=== PATIENT | male | born 1985 | race Caucasian/White ===

== ENCOUNTER 2019-03-26 15:29 | Emergency (ER) | payer SELFPAY, OTHER | END 2019-03-26 16:36 | disposition home or self-care (01) | LOC: FER 15:29 ==

== ENCOUNTER 2020-07-06 20:54 | Emergency (ER) | payer OTHER ==
[2020-07-06 21:05] VITALS: BP 130/89; TEMP 98.6; BMI 23.0
[2020-07-06] MEDS ORDERED: SODIUM CHLORIDE 1,000 ML IV ONE (21:34)
[2020-07-06 22:12] LABS: BASO % 0.7 % (0-2.0); EOS % 0.7 % (0-4.5); HEMATOCRIT 45.9 % (35.4-49); HEMOGLOBIN 15.4 GM/dl (11.7-16.9); LYMPH % 10.9 % (8-40); MCH 30.9 pg (25.7-33.7); MCHC 33.5 g/dl (32.0-35.9); MEAN CELL VOLUME 92.3 fl (80-96); MEAN PLT VOLUME 10.3 fl (7.5-11.1); MONO % 8.2 % (3.8-10.2); NEUT % 79.5 % (42.8-82.8); PLATELET COUNT 278 K/MM3 (134-434); RBC 4.97 M/mm3 (4.00-5.60); RDW 12.1 % (11.9-15.9); WHITE BLOOD COUNT 13.8 K/mm3 (4.0-10.8)
[2020-07-06 22:21] LABS: ALBUMIN 4.2 g/dl (3.4-5.0); BILIRUBIN,TOTAL 0.4 mg/dl (0.2-1); CALCIUM 9.6 mg/dl (8.5-10); POTASSIUM 4.1 mmol/L (3.5-5.1); TOT PROT 7.3 g/dl (6.4-8.2)
[2020-07-06 22:44] VITALS: PULSE 88
== END 2020-07-06 22:44 | disposition home or self-care (01) ==
LOC: FER 20:54
PROC: 3E0337Z Introduction of Electrolytic and Water Balance Substance into Peripheral Vein, Percutaneous Approach (ICD-10-PCS; principal; 2020-07-06)
DX: K62.5 Hemorrhage of anus and rectum (principal); Z87.19 Personal history of other diseases of the digestive system
CPT/HCPCS: 36415; 80053; 82272; 85025; 99284-25